=== PATIENT | male | born 1950 | race Caucasian/White ===

== ENCOUNTER 2018-10-16 07:41 | Observation (INO) | payer MEDICARE, MEDICAID, SELFPAY ==
[2018-10-16] VITALS (9 sets, daily range): BP systolic 146–161; BP diastolic 48–79; PULSE 16–70; RESP 11–18; TEMP 36.1–36.6; O2SAT 96–100; BMI 36.1; BMI 35.7; BMI 35.8
--- NOTE | 2018-10-16 | MRI_ITS ---
STUDY: MRI BRAIN WITH AND WITHOUT CONTRAST REASON FOR EXAM: Male, 68 years old. Dizziness, history of sarcoidosis TECHNIQUE: Standardized multiplanar fat and water weighted pulse sequences were obtained. 22 IV Dotarem was administered for the contrast portion of the examination. COMPARISON: Brain MRI 09/18/2016. FINDINGS: There is mild cerebral atrophy with widening of the extra-axial spaces and ventricular dilatation. There are a limited number of small white matter hyperintensities, distributed throughout the deep white matter tracts of the cerebral hemispheres, consistent with mild chronic white matter ischemic changes. There is no evidence for recent intracranial ischemia or other cause of cytotoxic edema on diffusion weighted imaging (DWI). Normal T2* images of the brain without demonstrated susceptibility artifact. There is no demonstrated hemosiderin stain. Normal bilateral basal ganglia. Normal thalami. There is no extra-axial fluid accumulation. Normal flow voids within the major intracranial circulation suggesting patency by spin echo criteria. Normal venous enhancement. There is no enhancing intra-axial or extra-axial abnormality. Normal sella turcica, pituitary gland, infundibular stalk, optic chiasm and hypothalamus. Normal tectal plate and pineal gland. Normal midbrain, srikanth and medulla. Normal cerebellum. Normal basal cisterns. Normal bilateral temporal bones. Normal bilateral internal auditory canals. No demonstrated orbital abnormality, within the constraints of a routine brain study. Normal visualized paranasal sinuses. Normal calvarium and skull base. Normal visualized soft tissue structures. Normal visualized upper cervical spine. MRI/Brain W/WO Contrast IMPRESSION: Involutional changes of the brain, as described above. No enhancing abnormality. Electronically Signed: Delgado Osborn, at 13:49 EDT Tel , Service support ,
--- NOTE | 2018-10-16 08:01 | EKG12_ITS ---
Test Reason : Blood Pressure : / mmHG Vent. Rate : 058 BPM Atrial Rate : 058 BPM P-R Int : 160 ms QRS Dur : 090 ms QT Int : 468 ms P-R-T Axes : 041 039 047 degrees QTc Int : 459 ms Sinus bradycardia Otherwise normal ECG Confirmed by HARPREET COTTRELL ([id number]), supervising editor trailer BURAK MARR ([id number]) on 10/17/2018 2:24:41 PM Referred By: MIKE Confirmed By:HARPREET COTTRELL
--- NOTE | 2018-10-16 08:01 | CT_ITS ---
STUDY: CT BRAIN WITHOUT CONTRAST REASON FOR EXAM: Male, 68 years old. Dizziness. RADIATION DOSAGE (If Supplied By Facility): CTDIvol = ( 44.99 ) mGy, DLP = ( 880.47 ) mGycm TECHNIQUE: Transaxial CT imaging of the brain was performed without administration of intravenous contrast material. Individualized dose optimization techniques were used for this CT. COMPARISON: Comparison is made with prior examination dated September 17, 2016. FINDINGS: Normal soft tissue structures. Normal calvarium. There is mild cerebral atrophy with widening of the extra-axial spaces and ventricular dilatation. There are areas of decreased attenuation within the white matter tracts of the supratentorial brain, consistent with microvascular disease changes. Stable small lacunar infarct in the right posterior thalamus Normal brainstem. Normal cerebellum. There is no intracranial hemorrhage. There are no findings of an acute ischemic infarction. There is atherosclerotic calcification of the vertebral arteries and cavernous portions of the internal carotid arteries bilaterally. Normal visualized paranasal sinuses. CT/Brain/Head without Contrast IMPRESSION: Chronic involutional changes of the brain. Electronically Signed: Elier Domínguez, at 8:32 EDT , Service support ,
[2018-10-16 08:12] LABS: Absolute Lymphocyte Count 0.65 X10^3/uL (0.83-4.51); Absolute Neutrophil Count 3.5 X10^3/uL (2.0-7.7); Basophil# 0.03 X10^3/uL; Basophil% 0.6 % (0-1); Eosinophil# 0.38 X10^3/uL; Eosinophils% 7.7 % (0-5); Hematocrit 36.5 % (40-54); Hemoglobin 11.3 g/dL (13.0-16.5); Lymphocyte # 0.65 X10^3/ul (4.0); Lymphocyte % 13.2 % (19-41); Mean Corpuscular Hgb 26.8 pg (27.0-32.0); Mean Corpuscular Volume 86.7 fL (80-94); Mean Platelet Vol. 9.6 fl (6.2-12.0); Monocyte# 0.36 X10^3/uL; Monocyte% 7.3 % (0-10); NRBC Flagged by Analyzer 0 % (0-5); Neutrophil # 3.47 X10^3/uL (2.7-7.7); Neutrophil % 70.8 % (47-70); Platelet Count 127 K/mm3 (150-450); RBC Distribution Width CV 15.4 % (11.6-14.6); RBC Distribution Width SD 48.8 fl (35.1-43.9); Red Blood Count 4.21 M/mm3 (4.6-6.2); White Blood Count 4.9 K/mm3 (4.4-11.0)
--- NOTE | 2018-10-16 08:14 | ED.DCSUM_ITS ---
- ER Visit Summary Date of Service: 10/16/18 Chief Complaint: Dizziness History of Present Illness: The patient is a 68 M with dizziness that started around midnight early this morning. He went back to sleep, and had trouble sleeping all night. He woke up this morning around 630. He was still dizzy. He also complained of nausea, vomiting, and sweats. He says his dizziness is like a lightheadedness and his balance is off. His noticed his balance was off. She did not notice any change in speech, facial droop, or weakness. He has a history of A. fib and is on aspirin and Coumadin. He also has a history of diabetes, hypertension, hyperlipidemia, and stroke. Physical Examination: Afebrile and vital signs unremarkable. Patient alert and oriented. No acute distress. HEENT exam unremarkable. Cranial nerves grossly intact. Heart regular rate and rhythm. Lungs clear. Skin appears normal. Good strength and sensation. Good cerebellar testing. NIH stroke scale is 0. Test Results: EKG showed sinus rhythm at a rate of 58. Laboratory studies, chest x-ray, and CT pending. Emergency Department Course and Treatment: Patient complains of lightheadedness. History of stroke. He has no focal neurologic symptoms and his NIH stroke scale is 0. Will initiate a stroke and chest pain work-up. Patient will likely need admission. We will continue monitoring for new or different symptoms. Hemoglobin 11.3, glucose 147, INR 3.0, troponin normal. Chest x-ray showed borderline cardiomegaly, nothing acute. CT brain showed chronic changes. While awaiting results, the patient had some very mild dysarthria. I reexamined him. No other new symptoms, speech seemed okay to me, but thought he might be a little bit slurred. He does not meet criteria for TPA as he is on Coumadin and his NIH is 1 at the most. Results were discussed with Dr. Wilkerson. No further imaging orders at this time, the patient will be admitted for further inpatient work-up. Treatment Plan: As above Disposition: PCU Impression: 1. Dizziness This note was generated with [employer] dictation software. It may contain incorrect words, spelling, and punctuation that were not noted in review of the chart prior to signing ED Disposition - Plan for ED Patient: Referrals: Len Nelson MD [Primary Care Provider] -
[2018-10-16 08:15] LABS: Bedside Glucose 141 mg/dL (70-110)
--- NOTE | 2018-10-16 08:20 | RAD_ITS ---
STUDY: X-RAY CHEST REASON FOR EXAM: Male, 68 years old. Dizziness. TECHNIQUE: Single AP portable view of the chest. COMPARISON: Comparison is made with prior study dated September 17, 2016. FINDINGS: EKG electrodes are seen. The lungs are clear and expanded. There is no demonstrated pleural abnormality. Sternal cerclage wires and vascular clips are present from a prior sternotomy and coronary artery bypass graft procedure (CABG). Borderline cardiomegaly. Normal mediastinum and brianna. Normal visualized pulmonary arteries. Normal visualized aortic arch and descending thoracic aorta. Normal visualized thoracic spine. Normal visualized ribs, clavicles, and shoulders. There is no demonstrated abnormality of the visualized soft tissue structures of the upper abdomen. RAD/Chest 1 View IMPRESSION: Borderline cardiomegaly. No acute abnormality is present. Electronically Signed: Elier Domínguez, at 8:39 EDT , Service support ,
[2018-10-16 08:48] LABS: Partial Thromboplast Time 47.1 Seconds (24.1-36.2); Prothrombin Time (Protime)PT. 30.9 SECONDS (11.7-14.9)
--- NOTE | 2018-10-16 08:52 | ED.RN ---
SPOUSE SAYS THAT SPEECH IS DIFFERENT SINCE HE HAS BEEN HERE. PT ABLE TO SPEAK IN CLEAR SENTENCES. DR MCKEON IS AWARE OF CHANGE
[2018-10-16 08:56] LABS: BUN 14 mg/dL (7-18); Creatinine, Serum 0.83 mg/dL (0.70-1.30); EST Glomerular Filtration Rate 97 mL/min (>60); Estimated Creatinine Clearance 82.81 ml/min; Glucose 147 mg/dL (74-106)
[2018-10-16 08:57] LABS: Anion Gap 8 (5-15); BUN/Creat Ratio 16.9 RATIO (10-20); Calcium,Total 8.2 mg/dL (8.5-10.1); Chloride 110 mmol/L (98-107); Est Glom Filt Rate - Afr Amer 118 mL/min (>60); Sodium Level 142 mmol/L (136-145)
--- NOTE | 2018-10-16 10:09 | HP.PCM_ITS ---
Problem List (1) Vertigo Status: Acute History of Present Illness Date of Admission: 10/16/18 Chief Complaint: dizziness The patient is a 68 year old M who was in his normal state of health up until last night where he started getting dizzy when he stood up. Symptoms persisted until today and presented to the emergency room. Patient underwent a head CT that was unremarkable. Prior to undergoing head CAT scan, he was also having some trouble speaking where he was just slurred. Patient has had a stroke before but his symptoms are different than his previous strokes. Patient is being brought in under observation status for further vertigo and evaluation including stroke work-up. [] Past Medical History Past Medical History (Chronic Problems): Chronic Problems PAF (paroxysmal atrial fibrillation) (Chronic) Obesity (BMI 30-39.9) (Chronic) HLD (hyperlipidemia) (Chronic) HTN (hypertension) (Chronic) Diabetes mellitus, type II (Chronic) Medical History: Medical History (Last Updated 10/16/18 @ 10:12 by Hong Wilkerson DO) Afib I48.91 CVA (cerebral vascular accident) I63.9 DM2 (diabetes mellitus, type 2) E11.9 Hyperlipidemia E78.5 Sarcoidosis D86.9 HTN (hypertension) I10 Allergies No Known Allergies Allergy (Verified 10/16/18 07:44) Home Medications: Ambulatory Orders Medication Instructions Recorded Insulin Detemir [Levemir FlexPen] 50 units SC DAILY 05/07/13 Multivitamins,Therapeutic 1 tablet PO DAILY 05/07/13 [Multivitamin] Ranitidine [Zantac] 150 mg PO BID 05/07/13 metFORMIN HCl [Glucophage] 1,000 mg PO BIDCM 05/07/13 Warfarin Sodium 8 mg PO SUTH 08/27/15 Warfarin [Coumadin] 6 mg PO MOTUWEFRSA 08/27/15 glipiZIDE XL [Glucotrol Xl] 20 mg PO DAILY 09/17/16 Atorvastatin Calcium 80 mg PO QHS 09/18/16 Metoprolol Succinate [Toprol Xl] 100 mg PO DAILY 09/18/16 Ascorbic Acid [Fruit C-100] 100 mg PO DAILY 10/16/18 Aspirin [Aspir 81] 81 mg PO DAILY 10/16/18 Furosemide [Lasix] 40 mg PO MOWEFR 10/16/18 Losartan Potassium [Cozaar] 25 mg PO DAILY 10/16/18 Surgical History: no surgical history Smoking Status: Never smoker Tobacco Use: Non-smoker Alcohol: None Drugs: None - *Family History Paternal History Items: Cancer, Stroke Review of Systems Constitutional: Denies: Anorexia, Chills, Fever, Night Sweats Eyes: Denies: Blurred vision, Double vision HEENT: Reports: Hearing Changes - Seem like it was hearing things through the tunnel. Denies: Difficulty Hearing, Ear Pain, Hard of Hearing Cardiovascular: Denies: Chest Pain, Palpitations Respiratory: Denies: Cough, Shortness of breath at rest, Sputum production Gastrointestinal: Denies: Abdominal Pain, Nausea, Vomiting Genitourinary: Denies: Dysuria Musculoskeletal: Denies: Joint Pain, Joint Tenderness Skin: Denies: Dryness, Jaundice Neurological: Reports: Slurred speech, - - vertigo. Denies: Focal weakness, Numbness, Tingling Psychiatric: Denies: Anxiety, Depression Hematologic/ Lymphatic: Denies: Easy Bruising, Easy Bleeding, Hx of blood clot VTE Information - Inpt Only VTE Present on Admission: No VTE Mechan Device Prophylaxis: None VTE Pharm Prophylaxis ordered?: No Reason prophylaxis not ordered:: Procedure Not Indicated Patient Problems: Active and Suspected Problems Vertigo (Acute) - Physical Exam General: Alert, Cooperative, No apparent distress HEENT: Atraumatic, PERRLA, EOMI, Normocephalic Oral: Moist Mucosa, No Gingival or Mucosal Lesions/ Ulcerations Neck: No Nodes, Thyroid Normal Size and Texture Lungs: Clear to auscultation, Normal air movement, No rhonchi, No wheeze, No rales, Diminished Cardiovascular: Regular rate, Regular Rhythm, Normal S1, Normal S2, No murmurs Abdomen: Bowel Sounds Present, Soft, Non Tender, Non-Distended, No Hepato- splenomegaly Extremities: No edema, No Calf Tenderness Skin: No rashes, No breakdown Musculoskeletal: No Tenderness to Palpation of Joints or Extremities, No Muscle Wasting Neurological: Cranial nerves II-XII grossly intact, Motor Exam 5/5 strength throughout, - - Russ-Hallpike was performed and had reproducible dizziness on the left though I was not able to appreciate any nystagmus. Psych/Mental Status: Normal Affect, Appropriate Vital Signs Temp Pulse Resp BP Pulse Ox 36.1 C L 60 16 149/68 H 99 10/16/18 09:07 10/16/18 09:07 10/16/18 09:07 10/16/18 09:07 10/16/18 09:07 Oxygen Flow Rate (L/min) 2 Oxygen Delivery Method Nasal Cannula Weight: 111.13 kg Body Mass Index (BMI) 36.1 Finger Stick Blood Glucose 141 Laboratory Tests Past 24 Hrs 10/16/18 10/16/18 10/16/18 07:59 07:59 07:59 WBC 4.9 RBC 4.21 L Hgb 11.3 L Hct 36.5 L MCV 86.7 MCH 26.8 L MCHC 31.0 L RDW Std Deviation 48.8 H RDW Coeff of Emanuel 15.4 H Plt Count 127 L MPV 9.6 Immature Gran % (Auto) 0.400 Neut % (Auto) 70.8 H Lymph % (Auto) 13.2 L [place]itt % (Auto) 7.3 Eos % (Auto) 7.7 H Baso % (Auto) 0.6 Absolute Neuts (auto) 3.5 Absolute Lymphs (auto) 0.65 L Nucleated RBC % 0 PT Cancelled INR Cancelled APTT Cancelled Sodium Cancelled Potassium Cancelled Chloride Cancelled Carbon Dioxide Cancelled Anion Gap Cancelled BUN Cancelled Creatinine Cancelled Estim Creat Clear Calc Cancelled Est GFR (MDRD) Af Amer Cancelled Est GFR (MDRD) Non-Af Cancelled BUN/Creatinine Ratio Cancelled Glucose Cancelled Calcium Cancelled Troponin I Cancelled 10/16/18 10/16/18 08:30 08:30 WBC RBC Hgb Hct MCV MCH MCHC RDW Std Deviation RDW Coeff of Emanuel Plt Count MPV Immature Gran % (Auto) Neut % (Auto) Lymph % (Auto) [place] % (Auto) Eos % (Auto) Baso % (Auto) Absolute Neuts (auto) Absolute Lymphs (auto) Nucleated RBC % PT 30.9 H INR 3.0 APTT 47.1 H Sodium 142 Potassium 4.0 Chloride 110 H Carbon Dioxide 24.0 Anion Gap 8 BUN 14 Creatinine 0.83 Estim Creat Clear Calc 82.81 Est GFR (MDRD) Af Amer 118 Est GFR (MDRD) Non-Af 97 BUN/Creatinine Ratio 16.9 Glucose 147 H Calcium 8.2 L Troponin I < 0.015 POC Glucose 10/16/18 08:08 POC Glucose 141 H Assessment/Plan All Active Problems Vertigo (Acute) TIA (transient ischemic attack) (Acute) 1. Acute vertigo * Suspect peripheral but will evaluate the patient for central process. * MRI of the brain, MRA of the head neck, echocardiogram, as well as a therapy evaluation. * If patient is found to have a new stroke on MRI, then will consult neurology. 2. Paroxysmal atrial fibrillation * Currently on normal sinus rhythm * INR is currently 3 * Continue with Coumadin, metoprolol succinate 3. History of stroke * May have been embolic given his history of atrial fibrillation * Already on warfarin, aspirin and atorvastatin 4. DM type II * Continue with metformin, basal insulin. Patient also be on sliding scale insulin in the hospital 5. VTE prophylaxis: Patient is low risk as he is already anticoagulated properly with warfarin. 6. Advanced care planning: Discussed with the patient and his . Patient wishes to be DNR Comfort Care arrest at this time. They expressed he and his that these decisions will reflect that him during this hospitalization but can be changed at any time. Code Visit OBSV E&M: [id number] Initial observation care L3
--- NOTE | 2018-10-16 10:11 | MRI_ITS ---
STUDY: MRA NECK WITH AND WITHOUT CONTRAST REASON FOR EXAM: Male, 68 years old. Dizziness TECHNIQUE: 3-D [id number] (TOF) imaging was performed in an 1.5 T MRI scanner. 22 IV Dotarem was administered for the contrast enhanced images. COMPARISON: MRA neck 09/18/2016. FINDINGS: RIGHT CAROTID ARTERIES: Normal right common carotid artery (CCA). Normal right common carotid bulb. Normal origin of the right internal carotid (ICA) artery without a hemodynamically significant stenosis. Normal visualized cervical portion of the right internal carotid artery. Normal origin of the right external carotid artery (ECA). LEFT CAROTID ARTERIES: Normal left common carotid artery (CCA). Normal left common carotid bulb. Normal origin of the left internal carotid (ICA) artery without a hemodynamically significant stenosis. Normal visualized cervical portion of the left internal carotid artery. Normal origin of the left external carotid artery (ECA). VERTEBRAL ARTERIES: Normal antegrade flow within the bilateral vertebral artery without a hemodynamically significant stenosis. MRI/MRA Neck WITH and W/O Contrast IMPRESSION: Normal bilateral cervical carotid and vertebral arteries. Electronically Signed: Delgado Osborn, at 13:40 EDT Tel , Service support ,
--- NOTE | 2018-10-16 10:11 | ECHOCS_ITS ---
Reason For Study: TIA/CVA Procedure This was a 2D Doppler, Color Flow transthoracic echocardiogram. The study was technically difficult. Due to body habitus. Contrast injection was performed. Exam performed portable in patient room. Left Ventricle Normal size and thickness. The estimated ejection fraction is 65 %. Stage 2 diastolic dysfunction. No regional wall motion abnormalities noted. Right Ventricle Normal size and thickness. Normal systolic function. Atria The left atrium is severely enlarged. The right atrium is mildly enlarged. Normal atrial septum. Mitral Valve Mild diffuse mitral valve thickening. Tricuspid Valve Normal tricuspid valve. Unable to estimate RV systolic pressure due to insufficient tricuspid regurgitant envelope. Aortic Valve Trisinus/trileaflet aortic valve. Mild focal aortic valve thickening. Mild focal aortic valve calcification. Mild restriction of the aortic valve. Mild aortic stenosis. Peak aortic valve gradient 24 mmHg. Mean aortic valve gradient 14 mmHg. Calculated aortic valve area (continuity equation) is 1.5 cm2. Pulmonic Valve The pulmonic valve is not well visualized. Great Vessels Calcified aortic root. Mild atherosclerosis of the aortic arch. Pericardium/Pleural No pericardial effusion. Medication Diluted definity 3.0ml given slow IV push to enhance endocardial definition. MMode/2D Measurements & Calculations LVIDd: 5.0 cm IVSd: 1.1 cm LVOT diam: 2.2 cm LVIDs: 3.1 cm LVPWd: 1.1 cm FS: 37.0 % LVOT area: 3.7 cm2 Ao root diam: 3.2 cm LAV(MOD-bp): 131.4 ml LA A4 area: 33.7 cm2 LAV(MOD-bp) Indexed: 58.3 ml/m2 LAV(MOD-sp2): 123.8 ml LAV(MOD-sp4): 127.4 ml LA dimension(2D): 6.0 cm RA A4 area: 22.4 cm2 Time Measurements MV dec time: 0.23 sec Doppler Measurements & Calculations MV E max héctor: 131.8 cm/sec Lat Peak E' Héctor: 10.8 cm/sec Med Peak E' Héctor: 6.1 cm/sec MV A max héctor: 69.4 cm/sec E/E' lat: 12.2 E/E' med: 21.7 MV E/A: 1.9 Ao V2 max: 227.3 cm/sec LV V1 max: 89.9 cm/sec SV(LVOT): 93.9 ml Ao max P.7 mmHg LV V1 max P.2 mmHg Ao V2 mean: 156.2 cm/sec LV V1 mean P.7 mmHg Ao mean P.0 mmHg LV V1 mean: 62.0 cm/sec Ao V2 VTI: 64.0 cm LV V1 VTI: 25.4 cm REECE(I,D): 1.5 cm2 REECE(V,D): 1.5 cm2 PA V2 max: 100.4 cm/sec Interpretation Summary The estimated ejection fraction is 65 %. Stage 2 diastolic dysfunction. The left atrium is severely enlarged. The right atrium is mildly enlarged. Unable to estimate RV systolic pressure due to insufficient tricuspid regurgitant envelope. Mild aortic stenosis. Compared to echo report dated 09/18/2016, no appreciable changes noted. The study was technically difficult. Contrast injection was performed. Ordering Physician: Hong Wilkerson Referring Physician: Len Nelson Performed By: Senia Ernst RDCS, RVT
--- NOTE | 2018-10-16 10:11 | MRI_ITS ---
STUDY: MRA OF THE HEAD WITHOUT CONTRAST REASON FOR EXAM: Male, 68 years old. Dizziness TECHNIQUE: 3-D [id number] (TOF) imaging was performed with MIPs. The study was performed unenhanced. COMPARISON: Head MRA 09/18/2016.. FINDINGS: Normal bilateral petrous carotid arteries. Normal right cavernous carotid artery with a normal supraclinoid bifurcation. Normal left cavernous carotid artery with a normal supraclinoid bifurcation. Normal right A1 segments of the anterior cerebral artery. Normal left A1 segments of the anterior cerebral artery. Normal intact anterior communicating artery (ACOM). Normal bilateral A2 segments of the anterior cerebral arteries. Normal right M1 and M2 segments of the middle cerebral arteries, with a normal M1 bifurcation. Normal left M1 and M2 segments of the middle cerebral arteries, with a normal M1 bifurcation. Normal right posterior communicating artery (PCOM). Normal left posterior communicating artery (PCOM). Normal bilateral vertebral arteries. Normal basilar artery with a normal basilar bifurcation. The visualized bilateral superior cerebellar (SCA) arteries are normal. Normal bilateral P1, P2 and visualized P3 segments of the posterior cerebral arteries. There is no demonstrated aneurysm of the [place]. There is no major vessel occlusion or hemodynamically significant stenosis. There is no demonstrated abnormality of the visualized brain. MRI/MRA Head ONLY without Contrast IMPRESSION: Normal MRA of the head Electronically Signed: Delgado Osborn, at 13:37 EDT Tel , Service support ,
[2018-10-16] MEDS: Losartan Potassium 25 MG Tablet PO (13:35)
[2018-10-16] MEDS: Famotidine 20 MG Tablet PO (13:36)
[2018-10-16] MEDS: Multivitamins,Therapeutic Tablet 1 TABLET PO (13:36)
[2018-10-16] MEDS: glipiZIDE XL 5 MG Tablet 20 MG PO (13:36)
[2018-10-16] MEDS: Aspirin E.C. 81 MG Tablet PO (13:37)
[2018-10-16] MEDS: Metoprolol(XL)Succ 100 MG Tablet PO (13:37)
[2018-10-16 13:55] LABS: Bedside Glucose 148 mg/dL (70-110)
--- NOTE | 2018-10-16 14:34 | PCM.DC ---
- Discharge Diagnoses Current Active Problems: Current Active and Chronic Problems (Last Updated 10/16/18 @ 10:12 by Hong Wilkerson DO) Vertigo (Acute) You will use the following diet at home:: Calorie/Carbohydrate Controlled (specify 1200, 1400, etc) - 1800 Your food should be the consistency of: Regular Your liquids should be the consistency of: Regular/Thin Discharge Activity: Return to Normal Activity Call your doctor if you observe: Fever of 101 or Higher, Inability to have a bowel movement, - - worsening dizziness Allergies/Adverse Reactions: Allergies No Known Allergies Allergy (Verified 10/16/18 07:44) Medications to take at Discharge Insulin Detemir [Levemir FlexPen] 50 units SC DAILY 05/07/13 Multivitamins,Therapeutic [Multivitamin] 1 tablet PO DAILY 05/07/13 Ranitidine [Zantac] 150 mg PO BID 05/07/13 metFORMIN HCl [Glucophage] 1,000 mg PO BIDCM 05/07/13 Warfarin Sodium 8 mg PO SUTH 08/27/15 Warfarin [Coumadin] 6 mg PO MOTUWEFRSA 08/27/15 glipiZIDE XL [Glucotrol Xl] 20 mg PO DAILY 09/17/16 Atorvastatin Calcium 80 mg PO QHS 09/18/16 Metoprolol Succinate [Toprol Xl] 100 mg PO DAILY 09/18/16 Ascorbic Acid [Fruit C-100] 100 mg PO DAILY 10/16/18 Aspirin [Aspir 81] 81 mg PO DAILY 10/16/18 Furosemide [Lasix] 40 mg PO MOWEFR 10/16/18 Losartan Potassium [Cozaar] 25 mg PO DAILY 10/16/18 Meclizine HCl [Antivert] 12.5 mg PO TID PRN #15 tab 10/16/18 The following prescriptions were given: Meclizine HCl [Antivert] 12.5 mg PO TID PRN #15 tab PRN Reason: Dizziness Transmission Status: Pending to [id number] Primary Care Physician: Len Nelson MD [Primary Care Provider] - Within 1 Week Test Results: Test results from this visit will be discussed in further detail at your follow-up appointment, if applicable. Proposed Discharge Date: 10/16/18
--- NOTE | 2018-10-16 14:36 | DS.PCM_ITS ---
Discharge Date and Diagnosis - Problem List Patient Problems: Active and Suspected Problems (Last Updated 10/16/18 @ 10:12 by Hong Wilkerson DO) Vertigo (Acute) Date of Admission: 10/16/18 Date of Discharge: 10/16/18 - Primary Discharge Diagnosis Active and Suspected Problems (Last Updated 10/16/18 @ 10:12 by Hong Wilkerson DO) Vertigo (Acute) 1. Acute vertigo * Suspect peripheral but will evaluate the patient for central process. * MRI brain, MRA head and neck, echo normal * no CVA * PRN meclizine * consider outpt vestibular rehab if recurs. 2. Paroxysmal atrial fibrillation * Currently on normal sinus rhythm * INR is currently 3 * Continue with Coumadin, metoprolol succinate 3. History of stroke * May have been embolic given his history of atrial fibrillation * Already on warfarin, aspirin and atorvastatin - Secondary Discharge Diagnosis Chronic Problems (Last Updated 10/16/18 @ 10:12 by Hong Wilkerson DO) Diabetes mellitus, type II (Chronic) HTN (hypertension) (Chronic) HLD (hyperlipidemia) (Chronic) Obesity (BMI 30-39.9) (Chronic) PAF (paroxysmal atrial fibrillation) (Chronic) Hospital Course and Treatment Imaging Results: 10/16/18 08:01 Brain/Head without Contrast [CT] Stat 10/16/18 08:20 Chest 1 View [RAD] Stat 10/16/18 10:11 Echo Complete W/ Contrast [ECHO] Routine MRA Head ONLY without Contrast [MRI] Routine MRA Neck WITH and W/O Contrast [MRI] Routine Clinical Impression(s) from Imaging Studies Brain MRI 10/16/18 00:00 IMPRESSION: Involutional changes of the brain, as described above. No enhancing abnormality. Electronically Signed: Delgado Osborn, at 13:49 EDT Tel , Service support , Brain CT 10/16/18 08:01 IMPRESSION: Chronic involutional changes of the brain. Electronically Signed: Elier Domínguez, at 8:32 EDT , Service support , Chest X-Ray 10/16/18 08:20 IMPRESSION: Borderline cardiomegaly. No acute abnormality is present. Electronically Signed: Elier Catrachita, at 8:39 EDT , Service support , Head MRA 10/16/18 10:11 IMPRESSION: Normal MRA of the head Electronically Signed: Delgado Osborn, at 13:37 EDT Tel , Service support , Neck MRA 10/16/18 10:11 IMPRESSION: Normal bilateral cervical carotid and vertebral arteries. Electronically Signed: Delgado Osborn, at 13:40 EDT Tel , Service support , Operations: None Procedures: None Summary of Care Provided: The patient is a 68 year old M with acute onset of dizziness. Concern was for s troke given the patient's history of stroke. INR was 3. Patient underwent a stroke work-up, including MRI, MRA of the head neck, echocardiogram which were all unremarkable. Patient states his dizziness is essentially resolved and has been up and ambulating without difficulty. Is my feeling that the patient's vertigo was due to peripheral process such as BPPV and stroke is been ruled out given the resolution of his symptoms but also the lack of findings on his MRI. [] Patient Problems: Active and Suspected Problems (Last Updated 10/16/18 @ 10:12 by Hong Wilkerson DO) Vertigo (Acute) - Physical Exam Vital Signs Temp Pulse Resp BP Pulse Ox 36.4 C L 68 16 161/48 H 98 10/16/18 13:44 10/16/18 13:44 10/16/18 13:44 10/16/18 13:44 10/16/18 13:44 Oxygen Flow Rate (L/min) 2 Oxygen Delivery Method Room Air Weight: 109.6 kg Body Mass Index (BMI) 35.7 Finger Stick Blood Glucose 141 Intake and Output for Last 24 Hours 10/14/18 10/15/18 10/16/18 23:59 23:59 23:59 Intake Total 240 / 240 Balance 240 / 240 Laboratory Tests Past 24 Hrs 10/16/18 10/16/18 10/16/18 07:59 07:59 07:59 WBC 4.9 RBC 4.21 L Hgb 11.3 L Hct 36.5 L MCV 86.7 MCH 26.8 L MCHC 31.0 L RDW Std Deviation 48.8 H RDW Coeff of Emanuel 15.4 H Plt Count 127 L MPV 9.6 Immature Gran % (Auto) 0.400 Neut % (Auto) 70.8 H Lymph % (Auto) 13.2 L [place] % (Auto) 7.3 Eos % (Auto) 7.7 H Baso % (Auto) 0.6 Absolute Neuts (auto) 3.5 Absolute Lymphs (auto) 0.65 L Nucleated RBC % 0 PT Cancelled INR Cancelled APTT Cancelled Sodium Cancelled Potassium Cancelled Chloride Cancelled Carbon Dioxide Cancelled Anion Gap Cancelled BUN Cancelled Creatinine Cancelled Estim Creat Clear Calc Cancelled Est GFR (MDRD) Af Amer Cancelled Est GFR (MDRD) Non-Af Cancelled BUN/Creatinine Ratio Cancelled Glucose Cancelled Calcium Cancelled Troponin I Cancelled 10/16/18 10/16/18 08:30 08:30 WBC RBC Hgb Hct MCV MCH MCHC RDW Std Deviation RDW Coeff of Emanuel Plt Count MPV Immature Gran % (Auto) Neut % (Auto) Lymph % (Auto) [place] % (Auto) Eos % (Auto) Baso % (Auto) Absolute Neuts (auto) Absolute Lymphs (auto) Nucleated RBC % PT 30.9 H INR 3.0 APTT 47.1 H Sodium 142 Potassium 4.0 Chloride 110 H Carbon Dioxide 24.0 Anion Gap 8 BUN 14 Creatinine 0.83 Estim Creat Clear Calc 82.81 Est GFR (MDRD) Af Amer 118 Est GFR (MDRD) Non-Af 97 BUN/Creatinine Ratio 16.9 Glucose 147 H Calcium 8.2 L Troponin I < 0.015 POC Glucose 10/16/18 10/16/18 13:18 08:08 POC Glucose 148 H 141 H Discharge Diet: 1800 Calorie Control Diet Discharge Activity: Return to Normal Activity Call your doctor if you observe: Fever of 101 or Higher, Inability to have a bowel movement, - - worsening dizziness Home Medications: Medications to take at Discharge Insulin Detemir [Levemir FlexPen] 50 units SC DAILY 05/07/13 Multivitamins,Therapeutic [Multivitamin] 1 tablet PO DAILY 05/07/13 Ranitidine [Zantac] 150 mg PO BID 05/07/13 metFORMIN HCl [Glucophage] 1,000 mg PO BIDCM 05/07/13 Warfarin Sodium 8 mg PO SUTH 08/27/15 Warfarin [Coumadin] 6 mg PO MOTUWEFRSA 08/27/15 glipiZIDE XL [Glucotrol Xl] 20 mg PO DAILY 09/17/16 Atorvastatin Calcium 80 mg PO QHS 09/18/16 Metoprolol Succinate [Toprol Xl] 100 mg PO DAILY 09/18/16 Ascorbic Acid [Fruit C-100] 100 mg PO DAILY 10/16/18 Aspirin [Aspir 81] 81 mg PO DAILY 10/16/18 Furosemide [Lasix] 40 mg PO MOWEFR 10/16/18 Losartan Potassium [Cozaar] 25 mg PO DAILY 10/16/18 Meclizine HCl [Antivert] 12.5 mg PO TID PRN #15 tab 10/16/18 Following Prescrptions Were Given to Patient: Meclizine HCl [Antivert] 12.5 mg PO TID PRN #15 tab PRN Reason: Dizziness Transmission Status: Pending to [facility] Primary Care Physician: Len Nelson MD [Primary Care Provider] - Within 1 Week Disposition: Home Minutes spent on discharge:: 35 Patient Condition:: Good Medical Necessity - Tobacco Use Smoking Status: Never smoker Tobacco Use: Non-smoker Meaningful Use Info Meaningful Use Diagnoses (Choose all that apply): None applicable Code Visit OBSV E&M: 03440 Observ/hosp same date L3
== END 2018-10-16 14:35 | disposition home or self-care (01) ==
LOC: ED 09:01 → PCU 09:21
PROVIDERS: Emergency Provider Emergency Medicine; Family Provider Internal Medicine; PCP Internal Medicine
DX: R42 Dizziness and giddiness (principal); I48.0 Paroxysmal atrial fibrillation; E11.9 Type 2 diabetes mellitus without complications; I10 Essential (primary) hypertension; E78.00 Pure hypercholesterolemia, unspecified; D86.9 Sarcoidosis, unspecified; E66.9 Obesity, unspecified; Z68.36 Body mass index [BMI] 36.0-36.9, adult; Z86.73 Personal history of transient ischemic attack (TIA), and cerebral infarction without residual deficits; Z79.82 Long term (current) use of aspirin; Z79.02 Long term (current) use of antithrombotics/antiplatelets; Z79.84 Long term (current) use of oral hypoglycemic drugs; Z79.899 Other long term (current) drug therapy
CPT/HCPCS: 36415; 70450; 70544; 70549; 70553; 71045; 80048; 82962; 84484; 85025; 85610; 85730; 93005; 93306; 94762; 97802; 99285; A9575; Q9957; A4216; C8929

== ENCOUNTER → 2019-12-31 13:39 | Outpatient (CLI) | payer MEDICARE, SELFPAY ==
[2018-10-16 16:27] VITALS: BMI 35.7
--- NOTE | 2019-12-31 13:44 | ART_ITS ---
Reason For Study: PVD Procedure A bilateral lower extremity continuous wave Doppler with analog waveform analysis,segmental pressures,and ankle brachial indexes without exercise. Left Segmental Pressures Left brachial= 172mmHg. Left posterior tibial artery = >254mmHg. Left dorsalis pedis artery = >254mmHg. Left digit = 59 mmHg. The left dorsalis pedis waveforms are triphasic. The left posterior tibial artery waveforms are triphasic. Right Segmental Pressures Right posterior tibial artery = >254mmHg. Right dorsalis pedis artery = >254mmHg. Right digit = 77 mmHg. The right dorsalis pedis waveforms are triphasic. The right posterior tibial artery waveforms are triphasic. Indices The right ankle brachial index by the dorsalis pedis is NC. The right ankle brachial index by the posterior tibial artery is NC. The right digital-brachial index is 0.45. The left ankle brachial index by the dorsalis pedis is NC. The left ankle brachial index by the posterior tibial artery is NC. The left digital-brachial index is 0.34. Interpretation Summary Triphasic Doppler waveforms are noted at ankle level bilaterally. Pulse-volume recordings appear satisfactory at all levels bilaterally, including low-thigh, calf, ankle, and digital levels. Resting ankle-brachial indices could not be determined due to the non-compressibility of the vasculature. The right digital-brachial index is moderately diminished. The left digital-brachial index is bqqyidefey-rb-apocbtar diminished. There is evidence of arterial calcification at ankle level bilaterally. Arterial flow appears normal at ankle level bilaterally. There is evidence of moderate, small-vessel arterial occlusive disease at digital level on the right. There is evidence of flexxyqv-af-nssqxs, small-vessel arterial occlusive disease at digital level on the left. Ordering Physician: Brad Carnes Referring Physician: Len Nelson M.D. Performed By: Hailee Celaya RVT
== END ==
PROVIDERS: PCP Internal Medicine; Referring Provider Podiatrist; Visit Provider Podiatrist
DX: I73.9 Peripheral vascular disease, unspecified (principal)
CPT/HCPCS: 93923

== ENCOUNTER → 2020-05-04 12:54 | Outpatient (CLI) | payer MEDICARE, SELFPAY ==
[2018-10-16 16:27] VITALS: BMI 35.7
--- NOTE | 2020-05-04 12:57 | VDLE_ITS ---
Reason For Study: Varicose veins RIGHT LEFT CFV is compressible, spontaneous, phasic, CFV is compressible, spontaneous, phasic, competent and demonstrates normal competent, and demonstrates normal augmentation. augmentation. FV is compressible, spontaneous, phasic, FV is compressible, spontaneous, phasic, competent and demonstrates normal competent and demonstrates normal augmentation. augmentation. POP V is compressible, spontaneous, phasic, POP V is compressible, spontaneous, phasic, competent and demonstrates normal competent and demonstrates normal augmentation. augmentation. T/P Trunk is compressible. T/P Trunk is compressible. PTV is compressible. PTV is compressible. RT PerV is compressible. LT PerV is compressible. SFJ is competent and measures 0.83 x 0.93 cm. GSV harvested below knee. GSV proximal thigh measures 0.27 x 0.27 cm. SFJ is competent and measures 0.68 x 0.97 cm. GSV above knee is competent. GSV proximal thigh measures 0.22 x 0.20 cm. GSV at knee measures 0.24 x 0.27 cm. GSV above knee is competent. GSV below knee is INCOMPETENT for greater ASV proximal calf is INCOMPETENT for greater than 0.5 seconds. than 0.5 seconds and measures 0.16 x 0.23 cm. ASV proximal calf is INCOMPETENT for greater SSV proximal calf is INCOMPETENT for greater than 0.5 seconds and measures 0.11 x 0.12 cm. than 0.5 seconds and measures 0.15 x 0.18 cm. SSV proximal calf is competent and measures 0.18 x 0.19 cm. Procedure This is a venous duplex using B-mode, color flow and spectral Doppler. Exam performed in department. Interpretation Summary Bilateral no DVT. Bilateral calf with reflux noted in superficial veins listed below. Ordering Physician: Alfredo Johnson Referring Physician: Len Nelson M.D. Performed By: Hailee Celaya RVT
== END ==
PROVIDERS: PCP Internal Medicine; Referring Provider Surgery Vascular Surgery; Visit Provider Surgery Vascular Surgery
DX: M79.89 Other specified soft tissue disorders (principal); M79.606 Pain in leg, unspecified; I87.2 Venous insufficiency (chronic) (peripheral); I48.91 Unspecified atrial fibrillation; Z77.9 Other contact with and (suspected) exposures hazardous to health; E11.59 Type 2 diabetes mellitus with other circulatory complications; I83.893 Varicose veins of bilateral lower extremities with other complications; I11.9 Hypertensive heart disease without heart failure; E78.00 Pure hypercholesterolemia, unspecified
CPT/HCPCS: 93970

== ENCOUNTER → 2020-06-01 21:31 | Outpatient (CLI) | payer MEDICARE, MEDICAID, SELFPAY ==
[2018-10-16 16:27] VITALS: BMI 35.7
== END ==
PROVIDERS: PCP Internal Medicine; Visit Provider Psychiatry & Neurology Sleep Medicine
DX: G47.33 Obstructive sleep apnea (adult) (pediatric) (principal)
CPT/HCPCS: 95810

== ENCOUNTER 2020-08-20 12:14 | Emergency (ER) | payer MEDICARE, MEDICAID, SELFPAY ==
[2018-10-16 16:27] VITALS: BMI 35.7
[2020-08-20 12:15] VITALS: BP 155/71; PULSE 75; RESP 18; TEMP 36.1; O2SAT 98; BMI 35.2
--- NOTE | 2020-08-20 12:42 | RAD_ITS ---
STUDY: X-RAY - RIGHT FEMUR REASON FOR STUDY: Male, 70 years old. Pain TECHNIQUE: 4 view(s) of the femur. COMPARISON: None. FINDINGS: Normal visualized femur. Mass or calcification. RAD/Femur Min 2 Views IMPRESSION: Vascular calcification. No bony abnormality is seen. Electronically Signed: Elier Domínguez MD at 13:58 EDT , Service support ,
--- NOTE | 2020-08-20 14:31 | ED.VIS.LOWEX ---
HPI History of Present Illness Chief Complaint: Lower Extremity Injury Detail of Chief Complaint: RLE pain Informant: patient and spouse/S.O. Onset/Context/Timing Onset: Days (3) Context: Sudden Onset Timing: Intermittent and Lasts (varies) Quality of Pain: Aching Location: initially, distal RLE, today has been in lateral hip and thigh down to knee Current Severity: Gone Maximum Severity: Severe Worsened by: certain movements Relieved by: remaining still and waiting Associated Symptoms Associated Symptoms: Negative for Parasthesia, Weakness and Loss of Funtion Narrative Narrative: Patient was just recently started on Namenda for dementia, and started having pain intermittently in his right lower extremity. It seemed to ascend, now occurring intermittently in his right lateral hip, buttock, thigh anteriorly. Right now it is not there. He denies any calf pain, swelling, history DVT or PE. In fact, the patient has history of atrial fibrillation and is on warfarin, his INR was checked last week and was 2.3. He has had no bleeding from anywhere. He denies any claudication. He has been walking around without any difficulty but states when the pain is present it is severe. [facility] Medical History Afib CVA (cerebral vascular accident) DM2 (diabetes mellitus, type 2) HTN (hypertension) Hyperlipidemia Sarcoidosis Home Medications Ranitidine [Zantac] 150 mg PO BID 05/07/13 [History Last Taken 09/17/16] insulin detemir U-100 [Levemir FlexTouch U-100 Insuln] 50 units SUBCUT DAILY 05/07/13 [History Last Taken 09/17/16] metformin 1,000 mg PO BIDCM 05/07/13 [History Last Taken 09/17/16] multivitamin with folic acid [Thera] 1 tab PO DAILY 05/07/13 [History Last Taken 09/17/16] warfarin 8 mg PO SUTH 08/27/15 [History Last Taken 09/17/16] warfarin [Jantoven] 6 mg PO MOTUWEFRSA 08/27/15 [History Last Taken 09/16/16] glipizide 20 mg PO DAILY 09/17/16 [History Last Taken Unknown] Atorvastatin Calcium 80 mg PO QHS 09/18/16 [History Last Taken 09/17/16] metoprolol succinate [Toprol XL] 100 mg PO DAILY 09/18/16 [History Last Taken 09/17/16] ascorbic acid (vitamin C) 100 mg PO DAILY 10/16/18 [History Last Taken Unknown] aspirin 81 mg PO DAILY 10/16/18 [History Last Taken Unknown] furosemide 40 mg PO MOWEFR 10/16/18 [History Last Taken Unknown] losartan 25 mg PO DAILY 10/16/18 [History Last Taken Unknown] meclizine 12.5 mg PO TID PRN #15 tab 10/16/18 [Rx Last Taken Unknown] hydrocodone-acetaminophen 0.5 - 1 tab PO Q4H PRN PRN 2 Days #10 tablet 08/20/20 [Rx Last Taken Unknown] Allergy/AdvReac Type Severity Reaction Status Date / Time No Known Allergies Allergy Verified 08/20/20 12:17 Social History Smoking Status: Never smoker ROS ROS ED Constitutional Constitutional ED: Denies chills or fever(s) Cardiovascular Cardiovascular: Denies edema Musculoskeletal Musculoskeletal: Reports extremity pain; Denies neck pain Integumentary Denies Abrasions, rash or wounds Neurologic Neurologic: Denies paresthesias or weakness EXAM Physical Exam Const Vital Signs: 08/20/20 12:15 Temperature 97.0 F L Temperature Source Temporal Pulse Rate 75 Respiratory Rate 18 Blood Pressure 155/71 H Blood Pressure Mean 99 Pulse Ox 98 Oxygen Delivery Method Room Air Positive well nourished and well developed General Appearance ED: well developed and NAD Neck full ROM and supple Back/Spine normal ROM and normal to inspection Extremity normal to inspection, full ROM, no calf tenderness and no pedal edema Extremity Narrative: And ranging all of the joints of the right lower extremity, the patient has no reproduction of pain. There is no tenderness at the greater trochanter/bursa. There is very mild tenderness at the pes anserine insertion/bursa, there is no swelling or erythema. With having the patient flex his knee against resistance there is no increased pain or tenderness at the medial hamstrings. With extending against resistance he does have some mild increased pain in the quadriceps with some mild tenderness at the patellar tendon. There is no bony patella tenderness, no effusion. There is no palpable cords or erythema or rash or abnormality in inspection in the thigh or lower leg. Painless range of motion of the hip with regards to the piriformis musculature and the groin. No tenderness in the piriformis/sciatic notch, or buttock/SI joint/back. 2+/4 bilateral dorsalis pedis pulses. Neuro oriented x3, no focal motor deficits and no sensory deficits noted Sensorium / Orientation: alert Psych mental status grossly normal and thought process normal Skin no wounds Rashes: no rashes MDM MDM MDM Narrative Medical decision making narrative: Patient has intermittent pain. I obtained x-rays of the bones throughout this region, they are normal. I do not think this is a DVT since he has no signs or symptoms of that, and he is fully anticoagulated. Discussed all of this with the patient and spouse and they are in agreement. I can reassure them at this time, my suspicion is that this is muscular in etiology, perhaps muscle spasm which is why it is intermittent pain. He just started Namenda, pain and back pain are listed in the possible common reaction page, which I discussed with them as well but I would continue the Namenda now at the low dose that he started it at, and when he increases the dose if his pain continues, to discuss with his doctor, as this may be the etiology. For now will prescribe him [place] to use as needed especially at nighttime when he needs to sleep, and we discussed topicals such as Biofreeze and icy hot which the spouse has. She is comfortable with that plan. Radiography Diagnostic Testing: Radiology Impression Femur X-Ray 08/20/20 12:42 IMPRESSION: Vascular calcification. No bony abnormality is seen. Electronically Signed: Elier Domínguez MD at 13:58 EDT , Service support , Discharge Plan Triage Chief Complaint: Lower Extremity Injury ED Provider: Manohar Wright Dx/Rx/DC Orders Clinical Impression: Acute pain of right lower extremity Instructions: ED Muscle Spasm Prescriptions: New hydrocodone-acetaminophen [hydrocodone-acetaminophen] 1 TABLET tablet 0.5 - 1 tab PO Q4H PRN PRN (Reason: Pain) 2 Days Qty: 10 RF: 0 No Action metformin 1,000 MG tablet 1,000 mg PO BIDCM RF: 0 insulin detemir U-100 [Levemir FlexTouch U-100 Insuln] 100 UNITS/ML insulin pen 50 units subcut DAILY RF: 0 multivitamin with folic acid [Thera] 1 TABLET tablet 1 tab PO DAILY RF: 0 Ranitidine [Zantac] 150 MG tablet 150 mg PO BID RF: 0 warfarin [Jantoven] 4 MG tablet 6 mg PO MOTUWEFRSA RF: 0 warfarin 4 MG tablet 8 mg PO SUTH RF: 0 glipizide 5 MG tablet 20 mg PO DAILY RF: 0 Atorvastatin Calcium 80 MG tablet 80 mg PO QHS RF: 0 metoprolol succinate [Toprol XL] 100 MG tablet extended release 24 hr 100 mg PO DAILY RF: 0 furosemide 40 MG tablet 40 mg PO MOWEFR RF: 0 aspirin 81 MG tablet,delayed release (DR/EC) 81 mg PO DAILY RF: 0 losartan 25 MG tablet 25 mg PO DAILY RF: 0 ascorbic acid (vitamin C) 100 MG tablet,chewable 100 mg PO DAILY RF: 0 meclizine 12.5 MG tablet 12.5 mg PO TID PRN (Reason: Dizziness) Qty: 15 RF: 0 Primary Care Provider: Len Nelson Referrals: Len Nelson MD [Primary Care Provider] - 3-5 Days if not improving Disposition Disposition: Home, self care Discharge Date/Time: 08/20/20 14:38
== END 2020-08-20 14:38 | disposition home or self-care (01) ==
PROVIDERS: Emergency Provider Emergency Medicine; PCP Internal Medicine
DX: M79.604 Pain in right leg (principal); I10 Essential (primary) hypertension; F03.90 Unspecified dementia, unspecified severity, without behavioral disturbance, psychotic disturbance, mood disturbance, and anxiety; E11.9 Type 2 diabetes mellitus without complications; E78.5 Hyperlipidemia, unspecified; D86.9 Sarcoidosis, unspecified; I48.91 Unspecified atrial fibrillation; Z86.73 Personal history of transient ischemic attack (TIA), and cerebral infarction without residual deficits; Z79.4 Long term (current) use of insulin; Z79.82 Long term (current) use of aspirin; Z79.01 Long term (current) use of anticoagulants; Z79.899 Other long term (current) drug therapy
CPT/HCPCS: 73552; 99282

== ENCOUNTER 2020-11-15 10:41 | Outpatient (RCR) | payer MEDICARE, SELFPAY ==
[2020-11-15 11:01] LABS: International Normalized Ratio 2.5; Prothrombin Time (Protime)PT. 26.2 SECONDS (11.7-14.9)
== END 2020-12-02 23:59 ==
LOC: LABSPEC 10:41
PROVIDERS: PCP Internal Medicine; Referring Provider Internal Medicine; Visit Provider Internal Medicine
DX: I48.20 Chronic atrial fibrillation, unspecified (principal)
CPT/HCPCS: 85610

== ENCOUNTER → 2021-02-04 | Outpatient (CLI) | payer MEDICARE, SELFPAY ==
[2021-02-04 17:10] LABS: Prothrombin Time (Protime)PT. 43.1 SECONDS (11.7-14.9)
[2021-02-05 08:40] LABS: International Normalized Ratio 4.7
== END | disposition home or self-care (01) ==
LOC: LABSPEC 16:12
PROVIDERS: PCP Internal Medicine; Visit Provider Internal Medicine
DX: I48.20 Chronic atrial fibrillation, unspecified (principal)
CPT/HCPCS: 85610

== ENCOUNTER → 2021-02-07 12:16 | Outpatient (CLI) | payer MEDICARE, SELFPAY ==
[2021-02-07 13:06] LABS: International Normalized Ratio 4.1; Prothrombin Time (Protime)PT. 38.7 SECONDS (11.7-14.9)
== END ==
PROVIDERS: PCP Internal Medicine; Visit Provider Internal Medicine
DX: I48.20 Chronic atrial fibrillation, unspecified (principal)
CPT/HCPCS: 85610

== ENCOUNTER → 2021-02-09 | Outpatient (CLI) | payer MEDICARE, SELFPAY ==
[2021-02-09 11:49] LABS: International Normalized Ratio 2.5; Prothrombin Time (Protime)PT. 26.6 SECONDS (11.7-14.9)
== END | disposition home or self-care (01) ==
LOC: LABSPEC 11:20
PROVIDERS: PCP Internal Medicine; Visit Provider Internal Medicine
DX: I48.20 Chronic atrial fibrillation, unspecified (principal)
CPT/HCPCS: 85610